=== PATIENT | male | born 1995 | race Caucasian/White ===

== ENCOUNTER 2024-11-16 23:26 | Emergency (ER) | payer BC, SELFPAY ==
--- NOTE | ~2024-11-16 | CT_ITS ---
Noncontrast CT scan of the right hip CLINICAL HISTORY: Pain TECHNIQUE: Axial noncontrast imaging of the right hip was performed. Sagittal and coronal reformatted images were constructed. Dose reduction technique was used on this scan by utilizing automated expos ure control and iterative reconstruction technique. The dose-length product (DLP) was 528.98 mGy-cm. Findings: No fracture or dislocation seen. Osseous alignment is anatomic. Right hip joint space is pr eserved. No joint effusion evident. There is irregular presumed postoperative hematoma laterally at the right hip region, measuring up to approximately 7.0 x 3.8 x 8.4 cm in size. Remaining musculature otherwise appears unremarkable. IMPRESSION: No fracture or dislocation. Irregular hematoma laterally at the right hip region measuring approximately 7.0 x 3.8 x 2.4 cm. Reviewed, dictated and finalized at [facility]. IMPRESSION: No fracture or dislocation. Irregular hematoma laterally at the right hip region measuring approximately 7. 0 x 3.8 x 2.4 cm.
--- NOTE | ~2024-11-16 | XR_ITS ---
AP view of the pelvis and AP and lateral views of the right hip Clinical history: Pain Findings: No acute fracture or dislocation is seen. Osseous alignment is anatomic. Bilateral hip and SI joint spaces are preserved. Soft tissues are unremarkable. Impression: No significant abnormality is seen. Reviewed, dictated and finalized at [facility]. Impression: No significant abnormality is seen.
[2024-11-16 23:27] VITALS: BP 137/73; PULSE 73; RESP 16; TEMP 36.1; O2SAT 99
--- OUTSIDE RECORDS SUMMARY | 2024-11-16 23:28 | XMS_ITS | Continuity of Care Document ---
Author Organization [facility] Address [address] [place] [address] Phone Care Team Providers Care Fur Mixer Operator Name Role Phone Lozoya OD, Devon Unavailable Unavailable Procedures Procedure Date Office/outpatient Visit, Est Eye Exam Established Pt Contact Lens Check Cntct Lens Hydrophilic Toric Or Prism Ba llast Tax - Medical Eye Exam, New Patient Refraction Advance Directives Directive Yes / No Effective Date File Name No Information Encounters Encounter Description Practice Location Reason(s) For Visit Diagnoses Date Provider Providers Copied on Encounter Office/outpat ient Visit, Est [facility], [address] [place] [address] [address], [place], [place], [id number], tel:[phone] SEC [facility] No Information October-0 6-201 0 Lozoya OD Devon. [address] , [address], [place], [address], [place]. tel:[phone] [facility], [address], [place], [place], [id number], [place] tel:[phone] [facility] No Information Sep- 0-201 0 Lozoya OD Devon. [address] , [address], [place], [address], [place]. tel:[phone] [facility], [address], [place], [place], [id number], tel:[phone] [facility] No Information Feb-1 3-201 0 Lozoya OD Devon. [facility] , [address], [place], [place], [facility], . tel:[phone] [facility], [address], [place], [place], [address], tel:[phone] [facility] No Information b 3-201 0 Lozoya OD Devon. [address] [place], [place] [address] , [address], [place], [place], [facility], . tel:[phone] Referring Provider: Devon Bustos, [address] [place], [place] [address], [place], [place], [facility]. tel:[phone] [facility], [address], [place], [place], [address], tel:[phone] [facility] No Information b-0 5-201 0 Lozoya OD Devon. [address] [place], [place] [address] , [address], [place], [place], [facility], . tel:[phone] Family History Family Member Type Diagnosis Age At Onset No Information Payers Payer name Insurance type Covered constitution party ID yahaira buitrago(s) [facility] Commercial CI [id number] Social History Type Description Quantity Date Captured Comments Sex Male Smoking Status No Information Chief Complaint And Reason For Visit No Information Reason For Referral Reason For Referral No Information History Of Present Illness Encounter Date Complaint History Of Prese nt Illness No Information Functional Status Date Functional Assessmen t No Information Instructions Date Instruction Additional Infor mation No Information Assessments Type Assessment Date No Information Patient Care Teams Name Effective Dates (start - stop) Status Members No Information
--- OUTSIDE RECORDS SUMMARY | 2024-11-16 23:28 | XMS_ITS | Clinical Summary ---
Author Organization [facility] Address [address] [facility] [place] [address] Care Team Providers Care Museum Assistant Name Role Phone Mihir Pizano MD Primary Care Provider [phone] Source Comments [facility],non-owned Affiliates and Associated Physician Practices is amultiple site organization consisting of ambulatory clinics and hospital sitesin [place], [place], [place] and [place]. This disclosure is being madepursuant to the Care Everywhere program and may not contain all information available regarding this patient. Last updated 18.[facility] Allergies No known active allergies Medications * Be aware that medications may not be up to date on this document. Alwaysverify current medications with the patient. Cholecalciferol (VITAMIN D-3 PO) Act shannon Family History Medical History Relation Name Comments Asthma Neg Hx Autoimmune Disease Neg Hx Bipolar Disorder Neg Hx Cancer - Breast Neg Hx Cancer - Colon Neg Hx Cancer - Other Neg Hx Cancer - Ovarian Neg Hx Cancer - Pancreatic Neg Hx Cancer - Prostate Neg Hx Depression Neg Hx Eczema Neg Hx Hypertension Neg Hx Migraine Neg Hx Osteoporosis Neg Hx Seizures Neg Hx Sudd. <30 Neg Hx Thyroid Disease Neg Hx Ulcerative Colitis Neg Hx Relation Name Status Comments Father Alive Mother Alive Social History Tobacco Use Types Packs/Day Years Used Date Smoking Tobacco: Never Smokeless Tobacco: Never Tobacco Cessation:Counseling Given: No Alcohol Use Standard Drinks/Week Comments No 0 (1 standard drink = 0.6 oz pur e alcohol) Sex and Gender Information Value Date Recorded Sex Assigned at Not on file Legal Sex Male 3:47 PM CDT Gender Identity Not on file Sexual Orientation Not on file Last Filed Vital Signs Vital Sign Reading Time Taken Comments Blood Pressure 128/62 11/19/2017 6:35 PM CDT Pulse 68 11/19/2017 6:35 PM CDT Temperature 36.8 C (98.2 F) 11/19/2017 6:35 PM CDT Respiratory Rate 16 11/19/2017 6:35 PM CDT Oxygen Saturation 98% 11/19/2017 6:35 PM CDT Inhaled Oxygen Concentration - - Weight 80.7 kg (178 lb) 11/19/2017 6:35 PM CDT Height 185.4 cm (6' 1) 11/19/2017 6:35 PM CDT Body Mass Index 23.48 11/19/2017 6:35 PM CDT Plan of Treatment Health Maintenance Due Date Last Done Comments HIV SCREENING 2012 HPV VACCINE (1 - Male 3-dose series) 2012 HEPATITIS C SCREENING 12/22/2015 DTAP/TDAP/TD VACCINES (1 - Tdap) 2016 HEPATITIS B VACCINE (1 of 3 - 19+ 3-dose series) 2016 COVID-19 VACCINE (1 - 2023-2 5 season) 2024 DEPRESSION SCREENING 06/18/2024 INFLUENZA VACCINE (Season Ended) 2025 ZOSTER VACCINE (1 of 2) 12/27/2047 HIB VACCINE Aged Out No longer eligi ble based on patient's age to complete this topic MENINGOCOCCAL (Group B) VACC INE SHARED DECISION-MAKING Aged Out No longer eligibl e based on patient's age to complete this topic MENINGOCOCCAL GROUPS A/C/Y/W VACCINE Aged Out No longer eligible b ased on patient's age to complete this topic PNEUMOCOCCAL VACCINE Aged Out No long er eligible based on patient's age to complete this topic Insurance [facility] Care Teams Museum Assistant Relationship Specialty Start Date End Date Mihir Pizano MD [address] [place] [address] PCP - General Family Medicine 11/19/17
--- NOTE | 2024-11-17 01:00 | ED.GENADULT ---
HPI - General Adult General Chief complaint: Extremity Injury, Lower Stated complaint: R hip pain Time Seen by Provider: 11/17/24 00:39 History of Present Illness HPI narrative: Patient is a 28-year-old gentleman who presents emergency department with chief complaint of right hip pain. 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 Related Data Allergies Allergy/AdvReac Type Severity Reaction Status Date / Time venom-wasp Allergy Severe Anaphylaxis Verified 11/16/24 23:26 sertraline (From Zoloft) AdvReac Mild anger Verified 11/16/24 23:26 Review of Systems Review of Systems: A 10 system review of systems was completed on the patient and is negative except for what is stated in the HPI. Nursing and ancillary documentation was reviewed. [facility] Past Medical History Medical History Hymenoptera allergy Scrotal cyst Depression Social History Social History Social History: Single Smoking status: Never smoker Second hand tobacco smoke exposure: No Alcohol intake: current Drinks per week: 10 Substance use: never Substance use type: does not use Living arrangements: with family Occupation/Education: occupation Gender identity (if verbalized by the patient): Male Exam Narrative: GENERAL: Well-appearing, well-nourished, and in no acute distress. HEAD: Normocephalic, atraumatic. EYES: PERRLA and EOMI. ENT: Nares clear, no rhinorrhea or epistaxis. Mucous membranes moist. NECK: Supple. CHEST: Clear to auscultation. No respiratory distress. HEART: Regular rate and rhythm. No murmur heard. Normal peripheral pulses. ABDOMEN: Soft, nontender, nondistended, normal active bowel sounds. EXTREMITIES: Normal range of motion in all extremities except for right hip. There is tenderness to palpation soft tissue around the greater trochanteric area. No edema. SKIN: Warm, dry, no rash. NEURO: No focal deficits. Alert and oriented x3. PSYCH: Normal mood and affect. Course Vital Signs Vital signs: Vital Signs Temperature 36.1 C L 11/16/24 23:27 Pulse Rate 73 11/16/24 23:27 Respiratory Rate 16 11/16/24 23:27 Blood Pressure 137/73 11/16/24 23:27 Pulse Oximetry 99 11/16/24 23:27 Oxygen Delivery Room Air 11/16/24 23:27 Temperature 36.1 C L 11/16/24 23:27 Pulse Rate 73 11/16/24 23:27 Respiratory Rate 16 11/16/24 23:27 Blood Pressure 137/73 11/16/24 23:27 Pulse Oximetry 99 11/16/24 23:27 Oxygen Delivery Room Air 11/16/24 23:27 Medical Decision Making MDM Narrative Medical decision making narrative: Differential diagnosis includes fracture, hematoma, muscle injury Plain film x-rays of the right hip showed no evidence of fracture CT scan of the right hip showed no fracture there is evidence of a [place] lesion with a 10 cm hematoma along the tensor fascial romain Case was discussed with Orthopedics the patient will be placed on crutches should rest elevate nice and follow-up as an outpatient. Vital Signs Vital Signs: Vital Signs Temperature 36.1 C L 11/16/24 23:27 Pulse Rate 73 11/16/24 23:27 Respiratory Rate 16 11/16/24 23:27 Blood Pressure 137/73 11/16/24 23:27 Pulse Oximetry 99 11/16/24 23:27 Oxygen Delivery Room Air 11/16/24 23:27 Temperature 36.1 C L 11/16/24 23:27 Pulse Rate 73 11/16/24 23:27 Respiratory Rate 16 11/16/24 23:27 Blood Pressure 137/73 11/16/24 23:27 Pulse Oximetry 99 11/16/24 23:27 Oxygen Delivery Room Air 11/16/24 23:27 Discharge Plan Discharge Clinical Impression: Hematoma of right hip Patient Disposition: Home Condition: Stable Instructions: Antibiotic Form, Crutch Instructions (ED), Hematoma (ED) Patient Language: Croatian Prescriptions: New hydrocodone-acetaminophen 5-325 mg tablet 1 tablet PO Q6H PRN (Reason: pain) 3 Days Qty: 12 0RF Follow-up/Referrals: Mihir Pizano MD [Primary Care Provider] - Clayton Rodríguez MD [Physician] - Time of Disposition: 01:53
--- OUTSIDE RECORDS SUMMARY | 2024-11-17 01:08 | XMS_ITS | Clinical Summary ---
Author Organization [facility] Address [address] [place] [address] Care Team Providers Care Supervisor Lace Tearing Name Role Phone Mihir Pizano MD Primary Care Provider [phone] Source Comments [facility],non-owned Affiliates and Associated Physician Practices is amultiple site organization consisting of ambulatory clinics and hospital sitesin [place], [place], [place] and [place]. This disclosure is being madepursuant to the Care Everywhere program and may not contain all information available regarding this patient. Last updated 18.[facility] Allergies No known active allergies Medications * Be aware that medications may not be up to date on this document. Alwaysverify current medications with the patient. Cholecalciferol (VITAMIN D-3 PO) Act shanonn Family History Medical History Relation Name Comments [...] patient's age to complete this topic Insurance [facility] Care Teams Supervisor Lace Tearing Relationship Specialty Start Date End Date Mihir Pizano MD [address] [place] [address] PCP - General Family Medicine 11/19/17
--- OUTSIDE RECORDS SUMMARY | 2024-11-17 01:08 | XMS_ITS | Continuity of Care Document ---
Author Organization [facility] Address [address] [place] [address] Phone Care Team Providers Care Receptionist Secretary Name Role Phone Lozoya OD, Devon Unavailable [...] Copied on Encounter Office/outpat ient Visit, Est [facility], [address] [place] [address] [address], [place], [place], [id number], tel:[phone] SEC [facility] No Information October-0 6-201 0 Lozoya OD Deovn. [address], [place], [address], [place]. tel:[phone] [facility], [address], [place], [place], [id number], [place] tel:[phone] [facility] [place] No Information Sep- 0-201 0 Lozoya OD Devon. [address], [place], [address], [place]. tel:[phone] [facility], [address], [place], [place], [address], tel:[phone] SEC [facility] No Information Feb-1 3-201 0 Lozoya OD Devon. [facility] , [address], [place], [place], [facility], . tel:[phone] [facility], [address], [place], [place], [id number], tel:[phone] SEC [facility] No Information b 3-201 0 Lozoya OD Devon. [address] [place], [place] [address] , [address], [place], [facility], . tel:[phone] Referring Provider: Devon Bustos, [address] [place], [place] [address], [place], [place], [facility]. tel:[phone] [facility], [address], [place], [place], [id number], tel:[phone] [facility] No Information b-0 5-201 0 Lozoya OD Devon. [address] [place], [place] [address] , [address], [place], [place], [facility], . tel:[phone] Family History Family Member Type Diagnosis Age At Onset No Information Payers Payer name Insurance type Covered alliance party ID yahaira buitrago(s) [facility] Commercial CI [id number] Social History Type Description Quantity Date Captured [...]
[2024-11-17 02:59] VITALS: BP 129/77; PULSE 71; RESP 18; O2SAT 100
== END 2024-11-17 03:01 | disposition home or self-care (01) ==
PROVIDERS: Emergency Provider Emergency Medicine; PCP Family Medicine
DX: S70.01XA Contusion of right hip, initial encounter (principal); X58.XXXA Exposure to other specified factors, initial encounter
CPT/HCPCS: 73502; 73700; 99284